=== PATIENT | male | born 1955 ===

== ENCOUNTER → 2018-03-08 | Outpatient (CLI) | payer OTHER | END | disposition home or self-care (01) | LOC: NUCLEAR 06:38 | DX: I20.8 Other forms of angina pectoris (principal); I25.119 Atherosclerotic heart disease of native coronary artery with unspecified angina pectoris; I11.9 Hypertensive heart disease without heart failure; I10 Essential (primary) hypertension | CPT/HCPCS: 78452; 93017; A9500 ==